=== PATIENT | male | born 1990 | race Caucasian/White ===

== ENCOUNTER 2017-12-14 16:43 | Inpatient (IN) | payer OTHER ==
[~2017-12-14] VITALS: Ht 167.6 cm; Wt 67.1 kg
[~2017-12-14 16:43] MED LIST: CIPRO500 MG PO; METRONIDAZOLE500 MG PO; PERCOCET 5/3251 TAB PO; RECTICARE30 GM TP
[2017-12-14] MEDS ORDERED: HUMIRA PEN40 MG/0.2 (16:55)
[2017-12-18] MEDS ORDERED: PROBIOTIC & AC1 EACH PO ×2 (10:12→10:23)
[2017-12-18] MEDS ORDERED: CIPRO500 MG PO (10:12)
[2017-12-18] MEDS ORDERED: FLAGYL500MG PO (10:12)
[2017-12-18] MEDS ORDERED: PERCOCET 5-3251 EACH PO (10:12)
[2017-12-18] MEDS ORDERED: OMEPRAZOLE20 MG PO (10:12)
[2017-12-18] MEDS ORDERED: CEFADROXIL500 MG PO (10:21)
== END 2017-12-18 11:40 | disposition home or self-care (01) | DRG 345 ==
LOC: ER 16:43 → SURH 19:14 → SEC-K 19:14 → O/R 19:14 → SURH 12-15 18:59
PROVIDERS: Surgery
PROC: 0DQQ7ZZ Repair Anus, Via Natural or Artificial Opening (ICD-10-PCS; 2017-12-15)
PROC: 0D9P0ZX Drainage of Rectum, Open Approach, Diagnostic (ICD-10-PCS; principal; 2017-12-15 13:30)
DX: K50.813 Crohn's disease of both small and large intestine with fistula (principal); K61.2 Anorectal abscess; K50.814 Crohn's disease of both small and large intestine with abscess; B96.20 Unspecified Escherichia coli [E. coli] as the cause of diseases classified elsewhere; B96.6 Bacteroides fragilis [B. fragilis] as the cause of diseases classified elsewhere

== ENCOUNTER 2023-10-17 08:51 | Inpatient (IN) | payer OTHER ==
[~2023-10-17] VITALS: Ht 175.3 cm; Wt 68.0 kg
[~2023-10-17 08:51] MED LIST changes: +CEFADROXIL500 MG PO; +FLAGYL500MG PO; +HUMIRA PEN40 MG/0.2; +OMEPRAZOLE20 MG PO; +PERCOCET 5-3251 EACH PO; +PROBIOTIC & AC1 EACH PO
[2023-10-17 11:15] LABS: HEMATOCRIT 37.4 % (39.0-48.0); MEAN CELL VOLUME 74.3 fL (80.0-100.00); MEAN CORPUSCULAR HEMOGLOBIN 23.8 pg (27.00-32.0); MEAN CORPUSCULAR HGB CONC 32.1 g/dl (32.0-36.0); PLATELET COUNT 343 K/uL (150-450); RED BLOOD COUNT 5.03 M/uL (4.00-6.00); RED CELL DISTRIBUTION WIDTH 15.5 % (11.5-14.5)
[2023-10-17 11:34] LABS: INR 1.08; PARTIAL THROMBOPLASTIN TIME 28.2 SECONDS (22.0-34.0); PROTHROMBIN TIME 11.3 SECONDS (9.0-11.5)
[2023-10-17 11:38] LABS: CALCIUM 8.9 mg/dL (8.5-10.1); CREATININE SERUM 0.78 mg/dL (0.70-1.30); GFR 116.09; POTASSIUM 3.84 mEq/L (3.5-5.1)
[2023-10-17 11:43] LABS: C-REACTIVE PROTEIN 1.2 MG/DL (0.00-0.29)
[2023-10-17 13:41] LABS: PH,URINE 6.5 (5.0-8.0); URINE APPEARANCE Clear; URINE BILIRRUBIN Negative (NEGATIVE); URINE BLOOD Negative; URINE COLOR Yellow; URINE GLUCOSE Negative (NEGATIVE); URINE LEUKOCYTE Negative; URINE NITRATE Negative; URINE PROTEIN Negative (NEGATIVE); URINE UROBILINOGEN 0.2 E.U./dl
[2023-10-17 13:45] LABS: URINE WBC 3.2 uL (0.0-23.2)
[2023-10-17 14:22] LABS: URINE BACTERIA 0 uL (0.0-1933); URINE EPITHELIAL CELLS 0.1 uL (0.0-38.8); URINE RBC 0.8 uL (0.0-20.8)
[2023-10-17 17:32] LABS: ALBUMIN 3.2 gm/dL (3.4-5.0); BILIRUBIN TOTAL 0.52 mg/dL (0.3-1.2); CREATININE SERUM 0.84 mg/dL (0.70-1.30); GFR 106.58; GLOBULINA 3.7 G/DL (2.4-3.5); POTASSIUM 4.29 mEq/L (3.5-5.1); TOTAL PROTEIN 6.9 gm/dL (6.4-8.2)
[2023-10-18 07:45] LABS: HEMATOCRIT 38.5 % (39.0-48.0); HEMOGLOBIN 12.4 g/dL (13-16.00); MEAN CELL VOLUME 74.9 fL (80.0-100.00); MEAN CORPUSCULAR HEMOGLOBIN 24.1 pg (27.00-32.0); MEAN CORPUSCULAR HGB CONC 32.2 g/dl (32.0-36.0); PLATELET COUNT 319 K/uL (150-450); RED BLOOD COUNT 5.14 M/uL (4.00-6.00); RED CELL DISTRIBUTION WIDTH 15.9 % (11.5-14.5)
[2023-10-18 08:06] LABS: INR 1.05; PARTIAL THROMBOPLASTIN TIME 29.3 SECONDS (22.0-34.0)
[2023-10-18 08:17] LABS: ALBUMIN 3.1 gm/dL (3.4-5.0); CALCIUM 8.9 mg/dL (8.5-10.1); CREATININE SERUM 1.02 mg/dL (0.70-1.30); GFR 85.18; POTASSIUM 4.14 mEq/L (3.5-5.1)
[2023-10-20 07:58] LABS: HEMATOCRIT 38.7 % (39.0-48.0); HEMOGLOBIN 12.5 g/dL (13-16.00); MEAN CELL VOLUME 74.1 fL (80.0-100.00); MEAN CORPUSCULAR HEMOGLOBIN 23.9 pg (27.00-32.0); MEAN CORPUSCULAR HGB CONC 32.3 g/dl (32.0-36.0); PLATELET COUNT 294 K/uL (150-450); RED BLOOD COUNT 5.23 M/uL (4.00-6.00); RED CELL DISTRIBUTION WIDTH 15.4 % (11.5-14.5)
[2023-10-20 08:21] LABS: ALBUMIN 2.8 gm/dL (3.4-5.0); CALCIUM 8.7 mg/dL (8.5-10.1); CREATININE SERUM 0.92 mg/dL (0.70-1.30); GFR 95.96; PHOSPHOROUS 4.2 mg/dL (2.5-4.9); POTASSIUM 4.54 mEq/L (3.5-5.1)
[2023-10-21] MEDS ORDERED: NASAL MIST126 ML NASAL (11:26)
[2023-10-21] MEDS ORDERED: CLINDAMYCIN HC300 MG PO (11:26)
[2023-10-24] MEDS ORDERED: CIPRO500 MG PO (07:41)
[2023-10-24] MEDS ORDERED: FLUCONAZOLE200 MG PO (07:41)
[2023-10-24] MEDS ORDERED: METRONIDAZOLE500 MG PO (07:41)
== END 2023-10-21 16:41 | disposition home or self-care (01) | DRG 348 ==
LOC: ER 08:51 → SURG 16:19 → SURH 16:19
PROVIDERS: General Practice; ADMIT Surgery; ATTEND Surgery
PROC: 0DBQ7ZZ Excision of Anus, Via Natural or Artificial Opening (ICD-10-PCS; 2023-10-19)
PROC: 3E0T3BZ Introduction of Anesthetic Agent into Peripheral Nerves and Plexi, Percutaneous Approach (ICD-10-PCS; 2023-10-19)
PROC: 0D9Q7ZZ Drainage of Anus, Via Natural or Artificial Opening (ICD-10-PCS; principal; 2023-10-19 10:00)
DX: K61.2 Anorectal abscess (principal); K50.113 Crohn's disease of large intestine with fistula; Z20.822 Contact with and (suspected) exposure to COVID-19; B95.2 Enterococcus as the cause of diseases classified elsewhere; B96.89 Other specified bacterial agents as the cause of diseases classified elsewhere